=== PATIENT | male | born 1970 | race African-American/Black ===

== ENCOUNTER 2021-05-30 05:52 | Emergency (ER) | payer MEDICARE ==
[~2021-05-30] VITALS: Ht 185.4 cm; Wt 127.0 kg
[2021-05-30 05:56] VITALS: BP 156/74
[2021-05-30 06:32] LABS: APPEARANCE,URINE Clear (CLEAR); BILIRUBIN,URINE Negative (NEGATIVE); COLOR,URINE Yellow (YELLOW); GLUCOSE, URINE (UA) Negative (NEGATIVE); KETONES,URINE Negative (NEGATIVE); LEUKOCYTE ESTERASE ,URINE Negative (NEGATIVE); NITRATE,URINE Negative (NEGATIVE); OCCULT BLOOD,URINE Negative (NEGATIVE); PROTEIN,URINE POS 1+ mg/dL (NEGATIVE)
[2021-05-30 06:33] LABS: AMPHET/METH SCREEN,URINE NEGATIVE (NEGATIVE); BARBITURATE SCREEN, URINE NEGATIVE (NEGATIVE); BENZODIAZEPINES SCREEN,URINE NEGATIVE (NEGATIVE); CANNABINOID SCREEN,URINE NEGATIVE (NEGATIVE); COCAINE SCREEN,URINE POSITIVE (NEGATIVE); OPIATE SCREEN,URINE NEGATIVE (NEGATIVE); PHENCYCLIDINE SCREEN,URINE NEGATIVE (NEGATIVE)
[2021-05-30 06:41] LABS: BASOPHILS % (AUTO) 0.2 % (0.0-5.0); HEMATOCRIT 43.6 % (42-54); LYMPHOCYTES % (AUTO) 18.5 % (21.0-51.0); MEAN CORPUSCULAR HEMOGLOBIN 29.6 pg (27.0-33.0); MEAN CORPUSCULAR HGB CONC 33.3 g/dL (32.0-36.0); MONOCYTES % (AUTO) 9.2 % (3.0-13.0); PLATELET COUNT (AUTO) 338 K/uL (130-400); RED CELL DISTRIBUTION WIDTH 14.2 % (11.0-15.5); WHITE BLOOD COUNT (AUTO) 8.6 K/uL (4.8-10.8)
[2021-05-30 06:42] VITALS: BP 139/86
[2021-05-30] MEDS ORDERED: POTA10CA44 PO (06:48)
[2021-05-30] MEDS ORDERED: LISI20TA24 PO (06:48)
[2021-05-30] MEDS ORDERED: QUET50TA22 PO (06:48)
[2021-05-30] MEDS ORDERED: ESCI20TA38 PO (06:48)
[2021-05-30] MEDS ORDERED: SIMV-46 PO (06:48)
[2021-05-30] MEDS ORDERED: OLAN20TA35 PO (06:48)
[2021-05-30] MEDS ORDERED: FURO20TA4 PO (06:48)
[2021-05-30] MEDS ORDERED: INSLAN SQ (06:48)
[2021-05-30] MEDS ORDERED: TADA2.5T3 PO (06:51)
[2021-05-30 07:05] LABS: BACTERIA,URINE Rare /HPF (None Seen); MUCUS,URINE Rare LPF (None Seen); RBC,URINE 0-1 /HPF (0-1); SQUAMOUS EPITHELIAL CELL,UR Rare /HPF (0-2); URIC ACID CRYSTALS,URINE Few /LPF (None Seen); WBC,URINE 0-1 /HPF (0-1)
[2021-05-30 07:50] LABS: ALANINE AMINOTRANSFERASE 48 U/L (12-78); ALBUMIN 4.1 g/dL (3.5-5.0); ASPARTATE AMINOTRANSFERASE 37 U/L (10-37); BILIRUBIN,TOTAL 0.5 mg/dL (0.2-1.0); CARBON DIOXIDE 28 mmol/L (21-32); CHLORIDE 101 mmol/L (101-111); CREATININE 1.6 mg/dL (0.5-1.5); GLOMERULAR FILTR. RATE CALC 59 mL/min (>60); GLUCOSE,RANDOM 98 mg/dL (70-105); SODIUM SERUM 135 mmol/L (136-145); TOTAL PROTEIN, SERUM 9.4 g/dL (6.0-8.3); UREA NITROGEN, BLOOD 32 mg/dL (7-18)
[2021-05-30 07:53] LABS: CREATINE KINASE, TOTAL 1616 U/L (21-232)
[2021-05-30] MEDS ORDERED: DEXTROSE 5%-LACTATED RINGERS 1,000 ML IV SCH (08:00)
[2021-05-30 08:03] LABS: ALCOHOL, BLOOD 4 mg/dL (0-10)
[2021-05-30 08:05] LABS: SALICYLATE < 2.8 mg/dL (2.8-20.0)
[2021-05-30 08:06] LABS: ACETAMINOPHEN < 1 mcg/mL (10-29)
[2021-05-30 08:10] VITALS: BP 139/87
[2021-05-30 13:12] VITALS: BP 131/84
== END 2021-05-30 13:14 | disposition home or self-care (01) ==
LOC: EDH 05:52
DX: R45.851 Suicidal ideations (principal); M62.82 Rhabdomyolysis; F14.10 Cocaine abuse, uncomplicated; E11.9 Type 2 diabetes mellitus without complications; I10 Essential (primary) hypertension; I25.10 Atherosclerotic heart disease of native coronary artery without angina pectoris; M79.7 Fibromyalgia; Z79.4 Long term (current) use of insulin; Z79.899 Other long term (current) drug therapy; Z91.14 Patient's other noncompliance with medication regimen; Z91.19 Patient's noncompliance with other medical treatment and regimen; Z98.890 Other specified postprocedural states; Z59.0 Homelessness
CPT/HCPCS: 36415; 80053; 80305; 81001; 82550; 85025; 93005; 96360; 96361; 99285; G0481; J3490

== ENCOUNTER 2022-08-27 20:29 | Emergency (ER) | payer MEDICARE ==
[~2022-08-27 20:29] MED LIST: ESCI20TA38 PO; FURO20TA4 PO; INSLAN SQ; LISI20TA24 PO; OLAN20TA35 PO; POTA10CA44 PO; QUET50TA24 PO; SIMV-46 PO; TADA2.5T3 PO
[2022-08-27 21:21] LABS: APPEARANCE,URINE CLEAR (CLEAR); BILIRUBIN,URINE NEGATIVE (NEGATIVE); COLOR,URINE YELLOW (YELLOW); GLUCOSE, URINE (UA) >=1000 mg/dL (NEGATIVE); KETONES,URINE 5 mg/dL (NEGATIVE); LEUKOCYTE ESTERASE ,URINE NEGATIVE Leu/uL (NEGATIVE); NITRATE,URINE NEGATIVE (NEGATIVE); OCCULT BLOOD,URINE NEGATIVE (NEGATIVE); PROTEIN,URINE 70 mg/dL (NEGATIVE); UROBILINOGEN,URINE 0.2 mg/dL (0.2-1.0)
[2022-08-27 21:28] LABS: MUCUS,URINE FEW LPF (None Seen); SQUAMOUS EPITHELIAL CELL,UR RARE /HPF (0-2)
[2022-08-27 21:29] LABS: BASOPHILS % (AUTO) 0.2 % (0.0-5.0); EOSINOPHILS % (AUTO) 3.6 % (0.0-8.0); HEMATOCRIT 38.2 % (42-54); LYMPHOCYTES % (AUTO) 31.2 % (21.0-51.0); MEAN CORPUSCULAR HEMOGLOBIN 29.1 pg (27.0-33.0); MEAN CORPUSCULAR HGB CONC 33.2 g/dL (32.0-36.0); MEAN CORPUSCULAR VOLUME 87.6 fL (79-99); MONOCYTES % (AUTO) 6.3 % (3.0-13.0); NEUTROPHILS % (AUTO) 58.5 % (40.0-77.0); PLATELET COUNT (AUTO) 337 K/uL (130-400); RED BLOOD CELL COUNT(AUTO) 4.36 MIL/uL (4.50-6.20); RED CELL DISTRIBUTION WIDTH 13.8 % (11.0-15.5); WHITE BLOOD COUNT (AUTO) 6.2 K/uL (4.8-10.8)
[2022-08-27 21:30] LABS: AMPHET/METH SCREEN,URINE POSITIVE (NEGATIVE); BARBITURATE SCREEN, URINE NEGATIVE (NEGATIVE); BENZODIAZEPINES SCREEN,URINE NEGATIVE (NEGATIVE); CANNABINOID SCREEN,URINE NEGATIVE (NEGATIVE); COCAINE SCREEN,URINE POSITIVE (NEGATIVE); OPIATE SCREEN,URINE NEGATIVE (NEGATIVE); PHENCYCLIDINE SCREEN,URINE NEGATIVE (NEGATIVE)
[2022-08-27 21:38] LABS: CARBON DIOXIDE 28 mmol/L (21-32); CHLORIDE 106 mmol/L (101-111); CREATININE 1.1 mg/dL (0.5-1.5); GLOMERULAR FILTR. RATE CALC 90 mL/min (>60); GLUCOSE,RANDOM 220 mg/dL (70-105); POTASSIUM 3.6 mmol/L (3.5-5.1); SODIUM SERUM 140 mmol/L (136-145); UREA NITROGEN, BLOOD 9 mg/dL (7-18)
[2022-08-27 21:44] LABS: ALANINE AMINOTRANSFERASE 40 U/L (12-78); ALBUMIN 3.2 g/dL (3.5-5.0); ALCOHOL, BLOOD < 3 mg/dL (0-10); ASPARTATE AMINOTRANSFERASE 18 U/L (10-37); SALICYLATE 2.8 mg/dL (2.8-20.0); TOTAL PROTEIN, SERUM 7.8 g/dL (6.0-8.3)
[2022-08-28 14:40] VITALS: BP 157/102
== END 2022-08-28 16:38 | disposition home or self-care (01) ==
LOC: EDH 20:29
DX: R45.851 Suicidal ideations (principal); F32.A Depression, unspecified; F41.9 Anxiety disorder, unspecified; I11.0 Hypertensive heart disease with heart failure; I50.9 Heart failure, unspecified; M19.90 Unspecified osteoarthritis, unspecified site; E11.9 Type 2 diabetes mellitus without complications; M79.7 Fibromyalgia; I25.10 Atherosclerotic heart disease of native coronary artery without angina pectoris
CPT/HCPCS: 99285; 82550; 80053; 80305; 85025; 36415; 93005; 81001; G0481